=== PATIENT | male | born 1980 | race Two or more races ===

== ENCOUNTER 2017-12-13 11:16 | Emergency (ER) | payer SELFPAY ==
[~2017-12-13] VITALS: Ht 172.7 cm; Wt 72.6 kg
[2017-12-13 11:20] VITALS: BP 155/83
[2017-12-13] MEDS ORDERED: Isovue-370 150ml vial INJ PRN (12:30)
[2017-12-13 13:13] VITALS: BP 118/66
[2017-12-13 13:14] LABS: BASOPHILS % (AUTO) 1.3 % (0.0-2.0); EOSINOPHILS % (AUTO) 0.2 % (0.0-3.0); HEMATOCRIT 45.8 % (42.0-52.0); HEMOGLOBIN 15.5 G/DL (14.2-18.0); LYMPHOCYTES % (AUTO) 20.1 % (20.0-45.0); MEAN CORPUSCULAR VOLUME 89 FL (80-99); MONOCYTES % (AUTO) 4.8 % (1.0-10.0); NEUTROPHILS % (AUTO) 73.6 % (45.0-75.0); PLATELET COUNT 232 K/UL (150-450); RED BLOOD COUNT 5.15 M/UL (4.70-6.10); RED CELL DISTRIBUTION WIDTH 11.2 % (11.6-14.8); WHITE BLOOD COUNT 7.8 K/UL (4.8-10.8)
[2017-12-13 13:15] LABS: APPEARANCE,URINE CLEAR; BILIRUBIN, URINE NEGATIVE (NEGATIVE); COLOR,URINE PALE YELLOW; GLUCOSE, URINE (UA) NEGATIVE (NEGATIVE); KETONES,URINE 4+ (NEGATIVE); LEUKOCYTE ESTERASE ,URINE NEGATIVE (NEGATIVE); NITRITE,URINE NEGATIVE (NEGATIVE); PH,URINE 7 (4.5-8.0); PROTEIN,URINE NEGATIVE (NEGATIVE); UROBILINOGEN,URINE NORMAL MG/DL (0.0-1.0)
[2017-12-13 13:18] LABS: INR 1.1 (0.9-1.1)
[2017-12-13 13:30] LABS: ALANINE AMINOTRANSFERASE 38 U/L (12-78); ALBUMIN 4.5 G/DL (3.4-5.0); ALBUMIN/GLOBULIN RATIO 1.2 (1.0-2.7); ALKALINE PHOSPHATASE 80 U/L (46-116); ANION GAP 20 mmol/L (5-15); ASPARTATE AMINO TRANSFERASE 28 U/L (15-37); BILIRUBIN,TOTAL 1.3 MG/DL (0.2-1.0); BLOOD UREA NITROGEN 7 mg/dL (7-18); CARBON DIOXIDE 17 MMOL/L (21-32); CHLORIDE 106 MMOL/L (98-107); CREATININE 1.2 MG/DL (0.55-1.30); POTASSIUM 3.2 MMOL/L (3.5-5.1); SODIUM 143 MMOL/L (136-145)
[2017-12-13 13:31] LABS: BILIRUBIN,DIRECT 0.3 MG/DL (0.0-0.3)
[2017-12-13 13:34] LABS: CALCIUM 9.5 MG/DL (8.5-10.1)
--- NOTE | 2017-12-13 14:09 | Emergency Room Report ---
History of Present Illness General Chief Complaint: General Complaint Source: Patient Present Illness HPI This patient is here for one day (since last night) sob. Onset at rest, home, nothing specific triggering. +anxious. No distinct cp. No cough, no fever. No leg pain/swelling. No travel history. No similar history. No ill family/ friends. 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 No trauma, no nausea, no vomiting, no diarrhea, no abdominal pain, no syncope, LOC, dizziness, lightheadedness, headache. Allergies: Coded Allergies: No Known Allergies (Unverified , 12/13/17) Nursing Documentation-[facility] Past Medical History: No Stated History Review of Systems Constitutional: Reports: no symptoms Eye: Reports: no symptoms ENT: Reports: no symptoms Respiratory: Reports: see HPI, shortness of breath Cardiovascular: Reports: no symptoms Gastrointestinal: Reports: no symptoms Genitourinary: Reports: no symptoms Musculoskeletal: Reports: no symptoms Skin: Reports: no symptoms Psychiatric: Reports: no symptoms Neurological: Reports: no symptoms Endocrine: Reports: no symptoms Hematologic/Lymphatic: Reports: no symptoms Allergic: Reports: no symptoms Physical Exam Vital Signs Date Time Temp Pulse Resp B/P (MAP) Pulse Ox O2 Delivery O2 Flow Rate FiO2 12/13/17 11:18 98.1 101 28 163/62 96 Room Air 98.1 Sp02 EP Interpretation: reviewed, normal General Appearance: normal inspection, well appearing, no apparent distress, alert, GCS 15, non-toxic, mild distress Head: normocephalic, atraumatic Eyes: bilateral eye normal inspection, bilateral eye PERRL, bilateral eye EOMI ENT: normal ENT inspection, hearing grossly normal, normal pharynx, no angioedema, normal voice, moist mucus membranes Neck: normal inspection, full range of motion, supple, no meningismus, no bony tend Respiratory: normal inspection, lungs clear, normal breath sounds, no rhonchi, no retraction, no accessory muscle use, no wheezing, other - tachypnea Cardiovascular #1: normal inspection, regular rate, rhythm, no edema, tachycardia Gastrointestinal: normal inspection, normal bowel sounds, non tender, soft, no mass, non-distended Musculoskeletal: gait/station normal, normal range of motion Neurologic: normal inspection, alert, oriented x3, responsive, motor strength/ tone normal Psychiatric: normal inspection, judgement/insight normal, memory normal Suicide Risk Assessment: Suicidal Ideation: No Had intent to initiate attempt: No Pt's plan for suicide attempt: No Has means to complete attempt: No Skin: normal inspection, normal color, no rash, warm/dry Medical Decision Making ER Course I have some concern for PE given subjective sob, tachypnea, tachycardia. CT thorax pending. I have asked next MD Dr. Lang to check result. EKG Diagnostic Results EKG Time: 11:28 Rate: tachycardiac Other Impression sinus tachy 113, right axis, iRBBB Reevaluation Time: 12:44 Last Vital Signs Date Time Temp Pulse Resp B/P (MAP) Pulse Ox O2 Delivery O2 Flow Rate FiO2 12/13/17 13:13 98.1 83 22 118/66 96 Room Air 98.1 Disposition: HOME, SELF-CARE Condition: Stable Referrals: NOT CHOSEN IPA/,REFERRING (PCP) Patient Instructions: Shortness of Breath, [id number] Barron Rodriges M.D. Dec 13, 2017 14:09
--- NOTE | 2017-12-13 15:33 | Diagnostic Imaging Report ---
ndication: Reason For Exam: SOB Technique: IV administration nonionic contrast. Spiral acquisitions obtained from the lung bases to the lung apices. Multiplanar and 3-D reconstructions were generated. Total dose length product 840.87 mGycm. CTDIvol(s) 22.41 mGy. Dose reduction achieved using automated exposure control Comparison: none Findings: No intraluminal filling defects or other findings to suggest acute pulmonary embolus demonstrated. There is good quality opacification of the pulmonary arteries. No evidence of right ventricular dilatation. No pulmonary arterial dilatation. No thoracic aortic aneurysm or dissection demonstrated. The lungs and pleural spaces are clear. No infiltrates, effusions, masses, or nodules are demonstrated. No mediastinal or hilar mass or adenopathy. Normal heart size. No pericardial effusion. No axillary or chest wall mass or adenopathy. Included portions of the thyroid are unremarkable. The bones demonstrate an old healed fracture deformity of the fourth and fifth ribs with a bridge of bone between the two on the left, are otherwise unremarkable. The included upper abdominal anatomy is unremarkable Impression: Essentially unremarkable exam. Negative for pulmonary embolus or other acute thoracic pathology Old healed left fourth and fifth rib fracture deformity The CT scanner at [facility] is accredited by the [employer] and the scans are performed using protocols designed to limit radiation exposure to as low as reasonably achievable to attain images of sufficient resolution adequate for diagnostic evaluation.
[2017-12-13 15:51] VITALS: BP 120/65
--- NOTE | 2017-12-13 16:19 | Diagnostic Imaging Report ---
Indication: Cough, chest pain Technique: One view of the chest Comparison: none Findings: Lungs and pleural spaces are clear. Heart size is normal Impression: No acute process
[2017-12-13 17:00] VITALS: BP 120/65
--- NOTE | 2017-12-15 17:05 | Cardiology Report ---
APPROVED REPORT EKG Measurement Heart [id number] Sinus tachycardia Rightward axis Incomplete right bundle branch block Borderline ECG
== END 2017-12-13 17:00 | disposition home or self-care (01) ==
LOC: EMR 11:59
DX: R06.02 Shortness of breath (principal); R06.82 Tachypnea, not elsewhere classified; R00.0 Tachycardia, unspecified
CPT/HCPCS: 36415; 71045; 71275; 80053; 80307; 81001; 82248; 84484; 85025; 85610; 93005; 99284; Q9967